=== PATIENT | female | born 1995 | race Caucasian/White ===

== ENCOUNTER 2020-07-15 15:18 | Emergency (ER) | payer OTHER, SELFPAY ==
[2020-07-15 15:24] VITALS: BP 143/76; PULSE 59; RESP 18; TEMP 36.7; O2SAT 100
--- NOTE | 2020-07-15 15:58 | ED.HA ---
HPI - Headache General Chief Complaint: Headache Stated Complaint: headache, rt sided vision changes and numbness Time Seen by Provider: 07/15/20 15:50 Source: patient Mode of arrival: Ambulatory Limitations: no limitations History of Present Illness HPI Narrative: This is a 24-year-old female comes emergency department complaint of headache. Patient states that is been present for about a week. Gradual onset. She has had migraines in the past but states that this is a an atypical pattern. Typically it is behind her eyes particularly her left eye. She states this time it is kind of posterior scalp region and her neck and jaw feel very tight. She has noticed a little bit of tingling in her right cheek. Patient states that she has glasses are about 3-month-old with a new or prescription but that she has been wearing them for the past 3 months. She does note that when she does not wear her glasses she does get headaches. Patient states that she has noticed that her glasses feel tight and push the left side of her scalp which seems to irritate and cause some of the discomfort. She has had some mild nausea but no vomiting. She denies any numbness, tingling or weakness elsewhere in her extremities. No chest pain or shortness of breath. No vomiting. No diarrhea constipation. She has tried, caffeine and foods but has not taken any qpjz-efr-nywsizx pain medications. Patient states she is otherwise healthy. Denies prior surgeries. Denies any allergies to medications. She did drive herself today. No tobacco, occasional social alcohol, no illicit. Related Data Allergies Allergy/AdvReac Type Severity Reaction Status Date / Time No Known Drug Allergies Allergy Verified 07/15/20 18:01 Review of Systems Review of Systems ROS Unobtainable: All systems reviewed & are unremarkable except as noted in HPI and below Patient History Social History Smoking Status: Never smoker Smoking Status: Never smoker Exam Narrative Exam Narrative: GEN: well nourished, well appearing female, alert and oriented x 3, patient appears to be in mild distress. HEENT: Atraumatic, pupils are equal round reactive to light, extraocular movements are intact, nares are clear, TMs are clear with no fluid, there is no conjunctival pallor. Throat is clear without any exudates, erythema, tonsillar enlargement or uvular deviation, no facial droop. HEART: Regular rate and rhythm without murmur, clicks, rubs. LUNGS:Lungs clear to auscultation, no wheezes, rales, crackles, chest moves symmetrically ABD:bowel sounds normal, soft, non-tender, no guarding, rebound, rigidity, no masses noted, no hepatosplenomegaly MSCL: Non-tender, no muscle atrophy, muscles strength 5/5 upper and lower extremities, full range of motion, normal gait NEURO:CN 2-12 intact, sensation normal, reflexes 2/4 upper and lower extremities. finger nose finger test normal, heel mario test normal. SKIN: No rash, erythema or skin changes noted. Initial Vital Signs Initial Vital Signs: Vital Signs Temperature 98.1 F 07/15/20 15:24 Pulse Rate 59 L 07/15/20 15:24 Respiratory Rate 18 07/15/20 15:24 Blood Pressure 143/76 H 07/15/20 15:24 Pulse Oximetry 100 07/15/20 15:24 Scores GCS Dennis coma scale eye opening: Spontaneous Dennis coma scale verbal response: Orientated [place] coma scale motor response: Obey commands Dennis coma scale total score: 15 Course Orders Ordered: ED Orders 07/15/20 17:00 CT head/brain wo con Stat 07/15/20 17:11 Basic Metabolic Panel Stat Complete Blood Count AUTO DIFF Stat Discontinued Medications Sodium Chloride (Normal Saline 0.9%) 1,000 mls @ 1,000 mls/hr IV BOLUS ONE Stop: 07/15/20 17:59 Last Infusion: 07/15/20 18:02 Dose: 0 mls/hr Documented by: Admin: 07/15/20 17:15 Dose: 1,000 mls/hr Documented by: LANNY Ketorolac Tromethamine (Ketorolac 60 Mg/2 Ml Vial) 30 mg IV NOW ONE Stop: 07/15/20 17:37 Last Admin: 07/15/20 17:40 Dose: 30 mg Documented by: LANNY Vital Signs Vital signs: Vital Signs - 8 hr 07/15/20 15:24 07/15/20 18:05 07/15/20 18:30 Temperature 98.1 F Pulse Rate 59 L 56 L 61 Respiratory Rate 18 Blood Pressure 143/76 H 113/71 Pulse Oximetry 100 100 100 MDM - Headache Lab Data Result diagrams: 07/15/20 17:11 07/15/20 17:11 Labs: Lab Results 07/15/20 07/15/20 Range/Units 17:11 17:11 WBC 5.1 (4.5-11.0) X10^3/uL RBC 4.53 (4.0-5.2) X10^6/uL Hgb 13.9 (12.0-16.0) g/dL Hct 40.7 (36-46) % MCV 89.9 (80-100) fL MCH 30.7 (26-34) PG MCHC 34.2 (30-36) % RDW 12.5 (11.6-14.8) % Plt Count 309 (150-400) X10^3/uL Neut % (Auto) 55.4 (50-75) % Lymph % (Auto) 33.1 (25-40) % [place] % (Auto) 7.5 (3-14) % Eos % (Auto) 3.5 (2-4) % Baso % (Auto) 0.5 (0-2) % Neut # (Auto) 2800 (8311-5501) /uL Lymph # (Auto) 1700 (2352-4265) /uL [place] # (Auto) 400 (0-900) /uL Eos # (Auto) 200 (0-450) /uL Baso # (Auto) 0 (0-100) /uL Sodium 140 (137-145) mmol/L Potassium 4.5 (3.4-5.1) mmol/L Chloride 104 (98-107) mmol/L Carbon Dioxide 34 H (22-32) mmol/L BUN 13 (7-17) mg/dL Creatinine 0.92 (0.52-1.04) mg/dL Estimated GFR > 60.0 (>60) mL/min BUN/Creatinine Ratio 14.1 (6-22) Glucose 88 (70-100) mg/dL Calcium 9.3 (8.4-10.2) mg/dL Imaging Data CT scan - head: Radiologist's Impression: [address] [id number] Scan ReportSigned Patient: Sarah Lilly [facility]#: [id number]: 1995Acct:[id number]/Sex: / FDate of Service: 07/15/20Loc: EDAccession Number: [id number] Procedure: CT head/brain wo con Ordering Provider: Kristy Hurd D.O. PROCEDURE: CT HEAD/BRAIN WO CON INDICATIONS: headache, atypical pattern TECHNIQUE: Noncontrast 4.5 mm thick angled axial sections acquired from the foramen magnum to the vertex, with coronal and sagittal reformats. For radiation dose reduction, the following was used: automated exposure control, adjustment of mA and/or kV according to patient size. COMPARISON: None. FINDINGS: Image quality: Excellent. CSF spaces: Basal cisterns are patent. No extra-axial fluid collections. Ventricles are normal in size and shape. Brain: No midline shift. No intracranial masses or hemorrhage. Winn-white matter interface is normal. Skull and face: Calvarium and visualized facial bones are intact, without suspicious lesions. Sinuses: Visualized sinuses and mastoids are clear. IMPRESSION: Normal intracranial study, without an imaging explanation found for the patient's presenting history of headache. Dictated by: Jeremy Mcgovern M.D. on 07/15/2020 at 16:14 Approved by: Jeremy Mcgovern M.D. on 07/15/2020 at 16:14 [facility] Narrative Medical decision making narrative: Patient has headache x 1 week without improvement. Patient does have some tingling of her cheek otherwise no neurologic changes. She has not tried any pvmk-cej-beqduhg pain medications. Head CT is negative. Labs do not show major abnormalities on recheck patient is feeling better, tension and pain have improved but not completely resolved. My suspicion for neurologic emergency is low. Suspect possible migraine variant. Discharge Plan Departure Patient Disposition: Home Clinical Impression: Headache Instructions: DI for Headache Activity Restrictions/Additional Instructions: Follow-up with physician in the next 24-48 hours if your symptoms have not resolved You may take ibuprofen up to 800 mg every 8 hours as needed for pain. You can take Tylenol up to a 1000 mg every 8 hours in conjunction with ibuprofen. You may use moist heat, hot showers hot packs if he finds helpful. Return to the ER for fevers, passing out, new vision changes, difficulty with speech, new numbness weakness or tingling in her extremities, difficulty with ambulation, persistent vomiting, sudden severe headaches or new changes or other new or concerning symptom
--- NOTE | 2020-07-15 17:00 | DI.CT.S_ITS ---
PROCEDURE: CT HEAD/BRAIN WO CON INDICATIONS: headache, atypical pattern TECHNIQUE: Noncontrast 4.5 mm thick angled axial sections acquired from the foramen magnum to the vertex, with coronal and sagittal reformats. For radiation dose reduction, the following was used: automated exposure control, adjustment of mA and/or kV according to patient size. COMPARISON: None. FINDINGS: Image quality: Excellent. CSF spaces: Basal cisterns are patent. No extra-axial fluid collections. Ventricles are normal in size and shape. Brain: No midline shift. No intracranial masses or hemorrhage. Winn-white matter interface is normal. Skull and face: Calvarium and visualized facial bones are intact, without suspicious lesions. Sinuses: Visualized sinuses and mastoids are clear. IMPRESSION: Normal intracranial study, without an imaging explanation found for the patient's presenting history of headache. Dictated by: Jeremy Mcgovern M.D. on 07/15/2020 at 16:14 Approved by: Jeremy Mcgovern M.D. on 07/15/2020 at 16:14
[2020-07-15] MEDS: SODIUM CHLORIDE 0.9% 1,000 ML 1000 ML IV (17:15)
[2020-07-15] MEDS: KETOROLAC 60 MG/2 ML VIAL 30 MG IV (17:40)
[2020-07-15 18:05] VITALS: PULSE 56; O2SAT 100
[2020-07-15 18:15] LABS: Add Manual Diff / Slide Review NO; Basophils Absolute Auto 0 /uL (0-100); Basophils Percent Auto 0.5 % (0-2); Eosinophils Absolute Auto 200 /uL (0-450); Eosinophils Percent Auto 3.5 % (2-4); Hematocrit 40.7 % (36-46); Hemoglobin 13.9 g/dL (12.0-16.0); Lymphocytes Absolute Auto 1700 /uL (1100-4500); Lymphocytes Percent Auto 33.1 % (25-40); Mean Corpuscular HGB Conc 34.2 % (30-36); Mean Corpuscular Hemoglobin 30.7 PG (26-34); Mean Corpuscular Volume 89.9 fL (80-100); Monocytes Absolute Auto 400 /uL (0-900); Monocytes Percent Auto 7.5 % (3-14); Neutrophils Absolute Auto 2800 /uL (1500-7000); Neutrophils Percent Auto 55.4 % (50-75); Platelet Count 309 X10^3/uL (150-400); Red Blood Cell Count 4.53 X10^6/uL (4.0-5.2); Red Cell Distribution Width 12.5 % (11.6-14.8); White Blood Cell Count 5.1 X10^3/uL (4.5-11.0)
[2020-07-15 18:20] LABS: BUN Creatinine Ratio 14.1 (6-22); Blood Urea Nitrogen 13 mg/dL (7-17); Calcium 9.3 mg/dL (8.4-10.2); Carbon Dioxide 34 mmol/L (22-32); Chloride 104 mmol/L (98-107); Estimated Glomerular Filt Rate > 60.0 mL/min (>60); Glucose 88 mg/dL (70-100); HEMOLYSIS < 15 (0-50); Potassium 4.5 mmol/L (3.4-5.1); Sodium 140 mmol/L (137-145)
[2020-07-15 18:30] VITALS: BP 113/71; PULSE 61; O2SAT 100
== END 2020-07-15 18:58 | disposition home or self-care (01) ==
PROVIDERS: Emergency Provider Emergency Medicine
DX: R51.9 Headache, unspecified (principal); H53.9 Unspecified visual disturbance
CPT/HCPCS: 36415; 70450; 80048; 85025; 96361; 96374; 99283; 99284; J1885

== ENCOUNTER 2021-12-26 11:52 | Emergency (ER) | payer OTHER, SELFPAY ==
--- NOTE | 2021-12-26 12:14 | DI.RAD.S_ITS ---
PROCEDURE: XR KNEE RT 3V INDICATIONS: increasing pain TECHNIQUE: 3 views of the knee were acquired. COMPARISON: None. FINDINGS: Bones: No fractures or dislocations. No suspicious bony lesions. Soft tissues: No joint effusion. No suspicious soft tissue calcifications. IMPRESSION: Normal right knee radiographs Approved by: Jose Chawla M.D. on 12/26/2021 at 12:39
[2021-12-26 12:16] VITALS: BP 146/77; PULSE 68; RESP 16; TEMP 36.5; O2SAT 99
--- NOTE | 2021-12-26 13:06 | ED.LOWEXIN ---
HPI - Extremity Injury (Lower) <Tucker Rene PA-C - Last Filed: 12/26/21 19:11> General Chief Complaint: Extremity Injury, Lower Stated Complaint: twisted knee at park yesterday Time Seen by Provider: 12/26/21 12:16 Source: patient Mode of arrival: Family Vehicle History of Present Illness HPI Narrative: Patient is a 26-year-old female who presents to the emergency department for evaluation right knee pain. Patient explains that she was playing soccer yesterday when she stopped abruptly, stating that she experienced a sharp pain in her right knee. Of note, patient states that she does have a history of patellar tendinitis had is currently working with physical therapy to alleviate her symptoms. Patient states she has been experiencing right knee pain chronically for the past year and half. She states that since yesterday she has had difficulty bearing weight on the right lower extremity and reports that there is a sensation of her knee ?locking up?. Patient also states that she has had difficulty walking up and down stairs and feels that her right knee is unstable. She denies fever, chills, chest pain, cough, shortness of breath, nausea, vomiting, diarrhea, constipation, abdominal pain, dysuria, hematuria, numbness and tingling in the lower extremities, or any other concerning symptoms. No further concerns were voiced at this time. Related Data Allergies Allergy/AdvReac Type Severity Reaction Status Date / Time No Known Drug Allergies Allergy Verified 07/15/20 18:01 Review of Systems <Tucker Rene PA-C - Last Filed: 12/26/21 19:11> Constitutional Constitutional: Denies chills, Denies fatigue, Denies fever(s), Denies frequent falls, Denies lethargy and Denies weakness ENT Ears, Nose, Mouth, and Throat: Denies neck pain Cardiovascular Cardiovascular: Denies chest pain, Denies irregular heart rhythm, Denies lightheadedness, Denies palpitations, Denies dyspnea, Denies dyspnea on exertion and Denies orthopnea Respiratory Respiratory: Denies dyspnea and Denies dyspnea on exertion Gastrointestinal Gastrointestinal: Denies abdominal pain, Denies change in bowel habits, Denies diarrhea, Denies nausea and Denies vomiting Genitourinary Genitourinary: Denies hematuria, Denies flank pain, Denies urinary incontinence and Denies urinary urgency Musculoskeletal Musculoskeletal: Denies back pain, Reports arthralgias (Right knee), Reports joint swelling (Right knee), Denies muscle weakness, Denies neck pain, Denies numbness and Denies tingling Integumentary/Breasts Skin/Breast: Denies pruritus, Denies erythema, Denies rash and Denies wounds Neurologic Neurologic: Denies frequent falls, Denies numbness, Denies tingling and Denies weakness Endocrine Endocrine: Denies fatigue and Denies palpitations Patient History <Tucker Rene PA-C - Last Filed: 12/26/21 19:11> Social History Smoking Status: Never smoker Smoking Status: Never smoker Substance Use Type: does not use Exam <Tucker Rene PA-C - Last Filed: 12/26/21 19:11> Narrative Exam Narrative: GENERAL: 26 year old patient appears stated age. Well-developed patient, in no acute distress. HEAD: Atraumatic. Normocephalic. EYES: Pupils equal round and reactive. Extraocular motions intact. No scleral icterus. No injection or drainage. ENT: Nose without bleeding, purulent drainage. Throat without erythema, tonsillar hypertrophy or exudate. Airway patent. NECK: Trachea midline. Non tender CARDIOVASCULAR: Regular rate and rhythm without murmurs, gallops, or rubs. RESPIRATORY: Clear to auscultation. Breath sounds equal bilaterally. No wheezes, rales, or rhonchi. GASTROINTESTINAL: Abdomen soft, non-tender, nondistended. EXTREMITIES: No edema. Tenderness to palpation appreciated immediately distal to the right patella without significant swelling or overlying erythema or ecchymosis. No appreciable joint laxity with varus or valgus stress. Negative Abbe test, negative posterior drawer, negative anterior drawer. No tenderness to palpation appreciated along the anterior tibia on the right. Good sensation light touch appreciated throughout the bilateral lower extremities. Gross motor function intact throughout the bilateral lower extremities. No popliteal fullness appreciated bilaterally. BACK: Nontender without deformity or crepitance. No flank tenderness. NEURO: AOx3. SKIN: No rash or erythema of visible areas Initial Vital Signs Initial Vital Signs: Vital Signs Temperature 97.7 F 12/26/21 12:16 Pulse Rate 68 12/26/21 12:16 Respiratory Rate 16 12/26/21 12:16 Blood Pressure 146/77 H 12/26/21 12:16 Pulse Oximetry 99 12/26/21 12:16 Oxygen Delivery Method 12/26/21 12:16 <Kristy Hurd DO - Last Filed: 12/27/21 12:10> Initial Vital Signs Initial Vital Signs: Vital Signs Temperature 97.7 F 12/26/21 12:16 Pulse Rate 68 12/26/21 12:16 Respiratory Rate 16 12/26/21 12:16 Blood Pressure 146/77 H 12/26/21 12:16 Pulse Oximetry 99 12/26/21 12:16 Oxygen Delivery Method 12/26/21 12:16 Course <Tucker Rene PA-C - Last Filed: 12/26/21 19:11> Course Course Narrative: Right knee x-ray obtained. No acute abnormality on x-ray. Orders Ordered: ED Orders 12/26/21 12:14 XR knee RT 3V Stat Vital Signs Vital signs: Vital Signs - 8 hr 12/26/21 12:16 Temperature 97.7 F Pulse Rate 68 Respiratory Rate 16 Blood Pressure 146/77 H Pulse Oximetry 99 Oxygen Delivery Method Room Air <Kristy Hurd DO - Last Filed: 12/27/21 12:10> Orders Ordered: ED Orders 12/26/21 12:14 XR knee RT 3V Stat Vital Signs Vital signs: Vital Signs - 8 hr 12/26/21 12:16 Temperature 97.7 F Pulse Rate 68 Respiratory Rate 16 Blood Pressure 146/77 H Pulse Oximetry 99 Oxygen Delivery Method Room Air MDM - Extremity Injury (Lower) <DAVID Sawant Last Filed: 12/26/21 19:11> Imaging Data Extremity x-ray #1: Radiologist's Impression: PROCEDURE:? XR KNEE RT 3V ? INDICATIONS:? increasing pain ? TECHNIQUE:? 3 views of the knee were acquired.? ? COMPARISON:? None. ? FINDINGS:? ? Bones:? No fractures or dislocations.? No suspicious bony lesions.? ? Soft tissues:? No joint effusion.? No suspicious soft tissue calcifications.? ? ? IMPRESSION:? Normal right knee radiographs ? ? ? Approved by: Jose Chawla M.D. on 12/26/2021 at 12:39? MDM Narrative Medical decision making narrative: Differential diagnosis to consider limited to fracture versus dislocation versus sprain versus strain. Discussed results of x-ray imaging with patient informed her that no acute bony abnormality was identified today. I discussed plan to provide the patient with knee immobilizer and have her follow-up with orthopedics. Patient expresses understanding and agrees to plan. I urged the patient to limit weight-bearing on the right lower extremity until she is evaluated by Orthopedics. Strict return precautions were discussed with the patient prior to discharge. Discharge Plan Departure Patient Disposition: Home Clinical Impression: Knee pain, right Instructions: DI for Knee Pain Activity Restrictions/Additional Instructions: *You have been diagnosed with right knee pain *What to do: *Please continue to take your regular medications as directed. [ ] New medication prescriptions sent to your pharmacy: [ ] [ ] New medication written as a paper prescription [X] No new medications given You were evaluated in the emergency department for right knee pain. X-ray imaging obtained in the emergency department today did not show signs of acute bony abnormality such as fracture or dislocation. You were provided with a knee immobilizer prior to discharge, please ensure that your limiting weight-bearing on the right lower extremity until you are evaluated by orthopedics. I set up a referral for orthopedic follow-up, they should be reaching out to you to schedule an appointment. Please follow-up with the primary care provider for further evaluation and management. Do not hesitate to return to the emergency department if you experience worsening pain, loss of sensation in the right lower extremity, increased swelling, fever, or any other concerning symptoms. *Please follow up with your primary care provider in 2-3 days, call for an appointment. Let them know you were seen in the Emergency Department and that we ask that you be seen in follow up. We will electronically transmit a record of today's note if your PCP is in our system *If you do not have a primary care provider please contact the [facility] Resource line at [phone]. They will ask some questions about your medical history and help get you set up with a doctor in the community. *Return to Emergency Department if you should have any new, worsening or concerning symptoms, such as fever greater than 101 F, shaking chills, worsening pain, persistent vomiting or other bothersome symptoms. Referrals: Nely Marshall MD [Physician] - 5-7 days Visit Report Forms: Patient Portal/API <Kristy Hurd, DO - Last Filed: 12/27/21 12:10> Cosign ED Attending Cosignature Attestation: I was immediately available in the department for consultation. Documentation has been reviewed.
== END 2021-12-26 14:10 | disposition home or self-care (01) ==
PROVIDERS: Emergency Provider Physician Assistant
DX: M25.561 Pain in right knee (principal)
CPT/HCPCS: 73562; 99282; 99283

== ENCOUNTER 2022-08-08 10:58 | Emergency (ER) | payer OTHER, SELFPAY ==
[2022-08-08 11:00] VITALS: BP 129/75; PULSE 80; RESP 18; TEMP 37; O2SAT 100; BMI 29.0
--- NOTE | 2022-08-08 11:04 | DI.RAD.S_ITS ---
PROCEDURE: XR CHEST 1V INDICATIONS: chest pain TECHNIQUE: One view of the chest was acquired. COMPARISON: None. FINDINGS: Surgical changes and devices: None. Lungs and pleura: Lungs are clear. No pleural effusions or pneumothorax. Mediastinum: Mediastinal contours appear normal. Heart size is normal. Bones and chest wall: No suspicious bony lesions. Overlying soft tissues appear unremarkable. IMPRESSION: No acute cardiopulmonary abnormality. Dictated by: Figueroa Villa M.D. on 08/08/2022 at 11:25 Approved by: Figueroa Villa M.D. on 08/08/2022 at 11:26
[2022-08-08 11:24] LABS: COVID19 -Nasal RAPID Negative (Negative)
[2022-08-08 11:40] LABS: Add Manual Diff / Slide Review NO; Basophils Absolute Auto 0 /uL (0-100); Basophils Percent Auto 0.6 % (0-2); Eosinophils Absolute Auto 200 /uL (0-450); Eosinophils Percent Auto 3.1 % (2-4); Hematocrit 40.5 % (36-46); Hemoglobin 13.5 g/dL (12.0-16.0); Lymphocytes Absolute Auto 1700 /uL (1100-4500); Lymphocytes Percent Auto 33.7 % (25-40); Mean Corpuscular HGB Conc 33.4 % (30-36); Mean Corpuscular Hemoglobin 29.9 PG (26-34); Mean Corpuscular Volume 89.5 fL (80-100); Monocytes Absolute Auto 300 /uL (0-900); Monocytes Percent Auto 5.9 % (3-14); Neutrophils Absolute Auto 2800 /uL (1500-7000); Neutrophils Percent Auto 56.7 % (50-75); Platelet Count 298 X10^3/uL (150-400); Red Blood Cell Count 4.53 X10^6/uL (4.0-5.2); Red Cell Distribution Width 13.5 % (11.6-14.8); White Blood Cell Count 4.9 X10^3/uL (4.5-11.0)
[2022-08-08 11:48] LABS: INR 1.1 (0.9-1.3)
[2022-08-08 11:50] LABS: PTT Partial Thromboplastin Tim 34 SECONDS (26-36)
[2022-08-08 11:54] LABS: Alanine Aminotransferase 19 IU/L (<35); Albumin 4.8 g/dL (3.5-5.0); Albumin Globulin Ratio 1.3 (1.0-2.8); Alkaline Phosphatase 37 U/L (38-126); Aspartate Aminotransferase 27 IU/L (14-36); BUN Creatinine Ratio 22.1 (6-22); Bilirubin Total 0.7 mg/dL (0.2-1.3); Blood Urea Nitrogen 19 mg/dL (7-17); Calcium 9.3 mg/dL (8.4-10.2); Carbon Dioxide 28 mmol/L (22-32); Chloride 102 mmol/L (98-107); Creatine Kinase 96 U/L (30-135); Estimated Glomerular Filt Rate > 60 mL/min (>60); Globulin 3.7 g/dL (1.7-4.1); Glucose 72 mg/dL (70-100); Lipase 70 U/L (23-300); Magnesium 2.1 mg/dL (1.6-2.3); Potassium 4.6 mmol/L (3.4-5.1); Sodium 140 mmol/L (137-145); Total Protein 8.5 g/dL (6.3-8.2)
[2022-08-08 11:55] LABS: HEMOLYSIS 60 (0-50)
[2022-08-08 11:58] LABS: D Dimer 221 ng/ml (<500)
[2022-08-08 12:05] LABS: Troponin I < 0.012 ng/mL (0.01-0.034)
[2022-08-08 12:36] VITALS: BP 117/72; PULSE 60; RESP 15; O2SAT 100
--- NOTE | 2022-08-08 13:22 | ED_ITS ---
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 She noticed also that she gets more gastric reflux symptoms, feels some burning in mid chest Patient states her diet is mostly healthy, but she did try some dieting within past 3 weeks, with intermittent fasting, but no more. No dyspnea on excertion no nausea or vomiting, BM is NL overall No fever, chills, no recent respiratory illness or medication changes Onset (ago): day(s) (5) Relieving factors: other (eatng ) Related Data Previous Rx's Medication Instructions Recorded omeprazole 40 mg capsule,delayed 40 mg PO DAILY #30 caps 08/08/22 release Allergies Allergy/AdvReac Type Severity Reaction Status Date / Time No Known Drug Allergies Allergy Verified 07/15/20 18:01 Review of Systems <Nany Momin PA-C - Last Filed: 08/08/22 16:00> Review of Systems Narrative: 12 point review of systems is negative except for those stated above Patient History <Nany Momin PA-C - Last Filed: 08/08/22 16:00> Social History Smoking Status: Never smoker Smoking Status: Never smoker Substance Use Type: does not use Exam <Nany Momin PA-C - Last Filed: 08/08/22 16:00> Narrative Exam Narrative: GENERAL: 26 year old patient appears stated age. Well-developed patient, in no acute distress. HEAD: Atraumatic. Normocephalic. EYES: Pupils equal round and reactive. Extraocular motions intact. No scleral icterus. No injection or drainage. ENT: Nose without bleeding, purulent drainage. Throat without erythema, tonsillar hypertrophy or exudate. Airway patent. NECK: Trachea midline. Non tender CARDIOVASCULAR: Regular rate and rhythm without murmurs, gallops, or rubs. RESPIRATORY: Clear to auscultation. Breath sounds equal bilaterally. No wheezes, rales, or rhonchi. GASTROINTESTINAL: Abdomen soft, epicastric area is tender, nondistended. NL BS X 4 no rebound tenderness RUQ EXTREMITIES: No edema or joint tenderness. BACK: Nontender without deformity or crepitance. No flank tenderness. NEURO: AOx3. no focal deficits SKIN: No rash or erythema of visible areas Initial Vital Signs Initial Vital Signs: Vital Signs Temperature 98.6 F 08/08/22 11:00 Pulse Rate 80 08/08/22 11:00 Respiratory Rate 18 08/08/22 11:00 Blood Pressure 129/75 08/08/22 11:00 Pulse Oximetry 100 08/08/22 11:00 Oxygen Delivery Method 08/08/22 11:00 <Janey Bustos DO - Last Filed: 08/08/22 19:58> Initial Vital Signs Initial Vital Signs: Vital Signs Temperature 98.6 F 08/08/22 11:00 Pulse Rate 80 08/08/22 11:00 Respiratory Rate 18 08/08/22 11:00 Blood Pressure 129/75 08/08/22 11:00 Pulse Oximetry 100 08/08/22 11:00 Oxygen Delivery Method 08/08/22 11:00 Course <Nany Momin PA-C - Last Filed: 08/08/22 16:00> Orders Ordered: ED Orders 08/08/22 11:04 XR chest 1V Stat EKG-12 Lead Stat 08/08/22 11:10 COVID19 -Nasal RAPID/Pre-Proc Stat 08/08/22 11:20 Complete Blood Count AUTO DIFF Stat Comprehensive Metabolic Panel Stat D Dimer Stat Lipase Stat Magnesium Stat Partial Thromboplastin Time Stat Prothrombin Time INR Stat Troponin & CK Cardiac Panel Stat Discontinued Medications Aspirin (Aspirin 81 Mg Chew Tab) 324 mg PO NOW ONE Stop: 08/08/22 11:05 Last Admin: 08/08/22 11:18 Dose: Not Given Documented By: MATIAS Vital Signs Vital signs: Vital Signs - 8 hr 08/08/22 12:36 08/08/22 13:23 Pulse Rate 60 60 Respiratory Rate 15 18 Blood Pressure 117/72 Pulse Oximetry 100 99 Oxygen Delivery Method Room Air Room Air <Janey Bustos DO - Last Filed: 08/08/22 19:58> Orders Ordered: ED Orders 08/08/22 11:04 XR chest 1V Stat EKG-12 Lead Stat 08/08/22 11:10 COVID19 -Nasal RAPID/Pre-Proc Stat 08/08/22 11:20 Complete Blood Count AUTO DIFF Stat Comprehensive Metabolic Panel Stat D Dimer Stat Lipase Stat Magnesium Stat Partial Thromboplastin Time Stat Prothrombin Time INR Stat Troponin & CK Cardiac Panel Stat Discontinued Medications Aspirin (Aspirin 81 Mg Chew Tab) 324 mg PO NOW ONE Stop: 08/08/22 11:05 Last Admin: 08/08/22 11:18 Dose: Not Given Documented By: MATIAS Vital Signs Vital signs: Vital Signs - 8 hr 08/08/22 12:36 08/08/22 13:23 Pulse Rate 60 60 Respiratory Rate 15 18 Blood Pressure 117/72 Pulse Oximetry 100 99 Oxygen Delivery Method Room Air Room Air MDM - SOB/Dyspnea <Nany Momin PA-C - Last Filed: 08/08/22 16:00> Differential Diagnosis Differential diagnosis: Likely other (gastritis ) Lab Data Lab results narrative: labs reviewed and NL including cardiac enzymes 08/08/22 11:20 08/08/22 11:20 Labs: Lab Results 08/08/22 08/08/22 08/08/22 Range/Units 11:10 11:20 11:20 WBC 4.9 (4.5-11.0) X10^3/uL RBC 4.53 (4.0-5.2) X10^6/uL Hgb 13.5 (12.0-16.0) g/dL Hct 40.5 (36-46) % MCV 89.5 (80-100) fL MCH 29.9 (26-34) PG MCHC 33.4 (30-36) % RDW 13.5 (11.6-14.8) % Plt Count 298 (150-400) X10^3/uL Neut % (Auto) 56.7 (50-75) % Lymph % (Auto) 33.7 (25-40) % [place] % (Auto) 5.9 (3-14) % Eos % (Auto) 3.1 (2-4) % Baso % (Auto) 0.6 (0-2) % Neut # (Auto) 2800 (7064-2618) /uL Lymph # (Auto) 1700 (4719-4642) /uL [place] # (Auto) 300 (0-900) /uL Eos # (Auto) 200 (0-450) /uL Baso # (Auto) 0 (0-100) /uL PT 13.0 H (10.1-12.7) SECONDS INR 1.1 (0.9-1.3) APTT 34 (26-36) SECONDS D-Dimer (<500) ng/ml Sodium (137-145) mmol/L Potassium (3.4-5.1) mmol/L Chloride (98-107) mmol/L Carbon Dioxide (22-32) mmol/L BUN (7-17) mg/dL Creatinine (0.52-1.04) mg/dL Estimated GFR (>60) mL/min BUN/Creatinine Ratio (6-22) Glucose (70-100) mg/dL Calcium (8.4-10.2) mg/dL Magnesium (1.6-2.3) mg/dL Total Bilirubin (0.2-1.3) mg/dL AST (14-36) IU/L ALT (<35) IU/L Alkaline Phosphatase (38-126) U/L Total Creatine Kinase (30-135) U/L CK-MB (CK-2) CK-MB (CK-2) Rel Index Troponin I (0.01-0.034) ng/mL Total Protein (6.3-8.2) g/dL Albumin (3.5-5.0) g/dL Globulin (1.7-4.1) g/dL Albumin/Globulin Ratio (1.0-2.8) Lipase (23-300) U/L SARS-CoV-2 (PCR) Negative (Negative) 08/08/22 08/08/22 Range/Units 11:20 11:20 WBC (4.5-11.0) X10^3/uL RBC (4.0-5.2) X10^6/uL Hgb (12.0-16.0) g/dL Hct (36-46) % MCV (80-100) fL MCH (26-34) PG MCHC (30-36) % RDW (11.6-14.8) % Plt Count (150-400) X10^3/uL Neut % (Auto) (50-75) % Lymph % (Auto) (25-40) % [place] % (Auto) (3-14) % Eos % (Auto) (2-4) % Baso % (Auto) (0-2) % Neut # (Auto) (2111-4270) /uL Lymph # (Auto) (4130-9524) /uL [place] # (Auto) (0-900) /uL Eos # (Auto) (0-450) /uL Baso # (Auto) (0-100) /uL PT (10.1-12.7) SECONDS INR (0.9-1.3) APTT (26-36) SECONDS D-Dimer 221 (<500) ng/ml Sodium 140 (137-145) mmol/L Potassium 4.6 (3.4-5.1) mmol/L Chloride 102 (98-107) mmol/L Carbon Dioxide 28 (22-32) mmol/L BUN 19 H (7-17) mg/dL Creatinine 0.86 (0.52-1.04) mg/dL Estimated GFR > 60 (>60) mL/min BUN/Creatinine Ratio 22.1 H (6-22) Glucose 72 (70-100) mg/dL Calcium 9.3 (8.4-10.2) mg/dL Magnesium 2.1 (1.6-2.3) mg/dL Total Bilirubin 0.7 (0.2-1.3) mg/dL AST 27 (14-36) IU/L ALT 19 (<35) IU/L Alkaline Phosphatase 37 L (38-126) U/L Total Creatine Kinase 96 (30-135) U/L CK-MB (CK-2) TNP CK-MB (CK-2) Rel Index TNP Troponin I < 0.012 (0.01-0.034) ng/mL Total Protein 8.5 H (6.3-8.2) g/dL Albumin 4.8 (3.5-5.0) g/dL Globulin 3.7 (1.7-4.1) g/dL Albumin/Globulin Ratio 1.3 (1.0-2.8) Lipase 70 (23-300) U/L SARS-CoV-2 (PCR) (Negative) Imaging Data Chest x-ray: Radiologist's Impression: Surgical changes and devices:? None.? ? Lungs and pleura:? Lungs are clear.? No pleural effusions or pneumothorax.? ? Mediastinum:? Mediastinal contours appear normal.? Heart size is normal.? ? Bones and chest wall:? No suspicious bony lesions.? Overlying soft tissues appear unremarkable.? ? IMPRESSION:? No acute cardiopulmonary abnormality. ? MDM Narrative Medical decision making narrative: Discussed with patient diagnosis and treatment Multiple etiologies for patient's symptoms considered including, but not limited to: acute gastritis, acute esophagitis esophageal dysmotility these could be attributable to her recent diet change, patient also may have hiatal hernia which in turn can cause esophagitis and gastritis advised to try PPI perhaps modify her diet with small frequent meals Prior Charts reviewed:yes Labs reviewed and interpreted by myself: yes and normal Imaging reviewed yes chest xray NL Patient's symptoms were stable over duration of stay Findings and discharge diagnosis discussed with patient followed by verbalization of understanding Return precautions discussed with patient/family whom verbalize understanding of diagnosis and plan <Janey Bustos, DO - Last Filed: 08/08/22 19:58> Lab Data Labs: Lab Results 08/08/22 08/08/22 08/08/22 Range/Units 11:10 11:20 11:20 WBC 4.9 (4.5-11.0) X10^3/uL RBC 4.53 (4.0-5.2) X10^6/uL Hgb 13.5 (12.0-16.0) g/dL Hct 40.5 (36-46) % MCV 89.5 (80-100) fL MCH 29.9 (26-34) PG MCHC 33.4 (30-36) % RDW 13.5 (11.6-14.8) % Plt Count 298 (150-400) X10^3/uL Neut % (Auto) 56.7 (50-75) % Lymph % (Auto) 33.7 (25-40) % [place] % (Auto) 5.9 (3-14) % Eos % (Auto) 3.1 (2-4) % Baso % (Auto) 0.6 (0-2) % Neut # (Auto) 2800 (4409-6710) /uL Lymph # (Auto) 1700 (7856-1172) /uL [place] # (Auto) 300 (0-900) /uL Eos # (Auto) 200 (0-450) /uL Baso # (Auto) 0 (0-100) /uL PT 13.0 H (10.1-12.7) SECONDS INR 1.1 (0.9-1.3) APTT 34 (26-36) SECONDS D-Dimer (<500) ng/ml Sodium (137-145) mmol/L Potassium (3.4-5.1) mmol/L Chloride (98-107) mmol/L Carbon Dioxide (22-32) mmol/L BUN (7-17) mg/dL Creatinine (0.52-1.04) mg/dL Estimated GFR (>60) mL/min BUN/Creatinine Ratio (6-22) Glucose (70-100) mg/dL Calcium (8.4-10.2) mg/dL Magnesium (1.6-2.3) mg/dL Total Bilirubin (0.2-1.3) mg/dL AST (14-36) IU/L ALT (<35) IU/L Alkaline Phosphatase (38-126) U/L Total Creatine Kinase (30-135) U/L CK-MB (CK-2) CK-MB (CK-2) Rel Index Troponin I (0.01-0.034) ng/mL Total Protein (6.3-8.2) g/dL Albumin (3.5-5.0) g/dL Globulin (1.7-4.1) g/dL Albumin/Globulin Ratio (1.0-2.8) Lipase (23-300) U/L SARS-CoV-2 (PCR) Negative (Negative) 08/08/22 08/08/22 Range/Units 11:20 11:20 WBC (4.5-11.0) X10^3/uL RBC (4.0-5.2) X10^6/uL Hgb (12.0-16.0) g/dL Hct (36-46) % MCV (80-100) fL MCH (26-34) PG MCHC (30-36) % RDW (11.6-14.8) % Plt Count (150-400) X10^3/uL Neut % (Auto) (50-75) % Lymph % (Auto) (25-40) % [place] % (Auto) (3-14) % Eos % (Auto) (2-4) % Baso % (Auto) (0-2) % Neut # (Auto) (2203-6974) /uL Lymph # (Auto) (2665-8482) /uL [place] # (Auto) (0-900) /uL Eos # (Auto) (0-450) /uL Baso # (Auto) (0-100) /uL PT (10.1-12.7) SECONDS INR (0.9-1.3) APTT (26-36) SECONDS D-Dimer 221 (<500) ng/ml Sodium 140 (137-145) mmol/L Potassium 4.6 (3.4-5.1) mmol/L Chloride 102 (98-107) mmol/L Carbon Dioxide 28 (22-32) mmol/L BUN 19 H (7-17) mg/dL Creatinine 0.86 (0.52-1.04) mg/dL Estimated GFR > 60 (>60) mL/min BUN/Creatinine Ratio 22.1 H (6-22) Glucose 72 (70-100) mg/dL Calcium 9.3 (8.4-10.2) mg/dL Magnesium 2.1 (1.6-2.3) mg/dL Total Bilirubin 0.7 (0.2-1.3) mg/dL AST 27 (14-36) IU/L ALT 19 (<35) IU/L Alkaline Phosphatase 37 L (38-126) U/L Total Creatine Kinase 96 (30-135) U/L CK-MB (CK-2) TNP CK-MB (CK-2) Rel Index TNP Troponin I < 0.012 (0.01-0.034) ng/mL Total Protein 8.5 H (6.3-8.2) g/dL Albumin 4.8 (3.5-5.0) g/dL Globulin 3.7 (1.7-4.1) g/dL Albumin/Globulin Ratio 1.3 (1.0-2.8) Lipase 70 (23-300) U/L SARS-CoV-2 (PCR) (Negative) ECG Data Interpretation: Juli-normal sinus rhythm rate 65 CA interval 146 QRS [address] changes T-wave inversion noted in V2 no previous to compare Discharge Plan Departure Patient Disposition: Home Clinical Impression: Acute gastritis without bleeding Qualifiers: Gastritis type: superficial Qualified Code(s): K29.00 - Acute gastritis without bleeding Dyspnea Qualifiers: Dyspnea type: shortness of breath Qualified Code(s): R06.02 - Shortness of breath Instructions: DI for Gastritis, DI for Shortness of Breath Activity Restrictions/Additional Instructions: *You have been diagnosed with acute gastritis and non specific shortness of breath *What to do: *Please continue to take your regular medications or supplements as directed. New medication prescriptions sent to your pharmacy: Omeprazole change diet via small frequent meal avoid fatty spicy foods drink plenty of fluids *Please follow up with your primary care provider if symptoms persist, call for an appointment. Let them know you were seen in the Emergency Department and that we ask that you be seen in follow up. We will electronically transmit a record of today's note if your PCP is in our system *If you do not have a primary care provider please contact the [facility] Resource line at [phone]. They will ask some questions about your medical history and help get you set up with a doctor in the community. *Return to Emergency Department if you should have any new, worsening or concerning symptoms, such as worsening pain, persistent vomiting or other bothersome symptoms Prescriptions: New omeprazole 40 mg capsule,delayed release(DR/EC) 40 mg PO DAILY Qty: 30 0RF Stand Alone Forms: Patient Portal/API <Janey Bustos DO - Last Filed: 08/08/22 19:58> Cosign ED Attending Ten Attestation: I was immediately available in the department for consultation. Documentation has been reviewed. With her shortness of breath according to nursing staff D-dimer was also added with her young age. It too is negative and unlikely a pulmonary embolism. She has negative PERC score as.
[2022-08-08 13:23] VITALS: PULSE 60; RESP 18; O2SAT 99
== END 2022-08-08 13:24 | disposition home or self-care (01) ==
PROVIDERS: Emergency Medicine; Emergency Provider Physician Assistant Medical
DX: K29.00 Acute gastritis without bleeding (principal); R06.02 Shortness of breath; R07.9 Chest pain, unspecified; Z20.822 Contact with and (suspected) exposure to COVID-19
CPT/HCPCS: 36415; 71045; 80053; 82550; 83690; 83735; 84484; 85025; 85379; 85610; 85730; 87635; 93005; 99284; C9803